=== PATIENT | male | born 1980 | race Caucasian/White ===

== ENCOUNTER 2018-05-26 13:39 | Inpatient (IN) ==
[2018-05-26] MEDS ORDERED: Sod Chloride 0.9% Inj 1,000 ML IV.SIG ONE (15:21)
[2018-05-26] MEDS ORDERED: Acetaminophen 325 MG Tablet PO ONE (15:21)
[2018-05-26 16:23] LABS: Baso # (Auto) 0.1 th/mm3 (0.0-0.2); Baso % (Auto) 0.7 % (0.0-2.0); Eos # (Auto) 0.1 th/mm3 (0.0-0.4); Eos % (Auto) 1.2 % (0.0-4.0); Hematocrit 42.5 % (39.0-51.0); Hemoglobin 14.9 gm/dL (13.0-17.0); Lymph # (Auto) 1.1 th/mm3 (1.0-4.8); Lymph % (Auto) 10.1 % (9.0-44.0); Mean Corpuscular HGB Conc 35.1 % (32.0-36.0); Mean Corpuscular Hemoglobin 29.8 pg (27.0-34.0); Mean Corpuscular Volume 84.8 fL (80.0-100.0); Mean Platelet Volume 8.1 fL (7.0-11.0); Mono # (Auto) 0.6 th/mm3 (0.0-0.9); Mono % (Auto) 5.2 % (0.0-8.0); Neut # (Auto) 8.8 th/mm3 (1.8-7.7); Neut % (Auto) 82.8 % (16.0-70.0); Platelet Count 349 th/mm3 (150-450); Red Blood Count 5.01 mil/mm3 (4.50-5.90); Red Cell Distribution Width 12.5 % (11.6-17.2); White Blood Count 10.7 th/mm3 (4.0-11.0)
[2018-05-26 16:32] LABS: Activated Partial Thrombo Time 26.1 sec (23.4-31.7); Prothrombin Time 10.1 sec (9.8-11.6)
[2018-05-26 16:47] LABS: Alanine Aminotransferase 70 U/L (12-78); Albumin 3.9 g/dL (3.4-5.0); Anion Gap 7 meq/L (5-15); Aspartate Aminotransferase 22 U/L (15-37); Blood Urea Nitrogen 13 mg/dL (7-18); Calcium 8.9 mg/dL (8.5-10.1); Carbon Dioxide 28.5 meq/L (21.0-32.0); Chloride 102 meq/L (98-107); Glomerular Filtration Rate Greater Than 89 mL/min (>89); Glucose,Random 112 mg/dL (74-106); Sodium 137 meq/L (136-145)
[2018-05-26 16:49] LABS: Alkaline Phosphatase 61 U/L (45-117); Total Protein 7.4 g/dL (6.4-8.2)
[2018-05-26] MEDS ORDERED: Butalbital/APAP/Caff 50/325/40 MG Tablet PO ONE (17:43)
[2018-05-26] MEDS ORDERED: Lidocaine 1% Inj 50 ML Vial INFILTRATN ONE (17:57)
--- NOTE | 2018-05-26 18:50 | ED ---
HPI General Chief complaint: Headache Stated complaint: Head Complaint Time Seen by Provider: 05/26/18 14:55 Source: patient Mode of arrival: ambulatory Limitations: no limitations History of Present Illness HPI narrative: Patient is a 38 year old male who comes in complaining of headache. He says he has had a headache for 7-8 days now. He says the pain was behind his eyes and now wraps around his head. He denies nausea or vomiting. He has tried Tylenol, Ibuprofen without relief. His doctor gave him a prescription for Tramadol, but he says this has not helped either. He says he has occasional fevers, the last one was a few days ago. He says his doctor did a CT scan and told him to come to the ED to rule out meningitis. He does report comes pain to the back of his neck. Severity is moderate. Related Data Home Medications Medication Instructions Recorded Confirmed atorvastatin 10 mg PO DAILY 05/26/18 05/26/18 lisinopril 20 mg PO DAILY 05/26/18 05/26/18 Allergies Allergy/AdvReac Type Severity Reaction Status Date / Time No Known Allergies Allergy Verified 05/26/18 13:54 Review of Systems ROS: all other systems reviewed are negative Constitutional Reports fever(s) ENT Reports dizziness and Reports headache(s) Cardiovascular Denies chest pain and Denies dyspnea Respiratory Denies cough Gastrointestinal Denies nausea and Denies vomiting Musculoskeletal Denies myalgias and Denies arthralgias Integumentary/Breasts Denies sores and Denies wounds Neurologic Reports headache(s) [facility] Medical History Medical History HTN (hypertension) (Acute) High cholesterol (Acute) Surgical History Surgical History History of shoulder surgery (Acute) Social History Social History Substance History: No History of Abuse Second Hand Smoke Exposure: No Smoking Status: Never smoker How Often Do You Have a Drink Containing Alcohol: 2 to 4 times a month Recent Travel in [facility] within the Last 8 Weeks: No Recent Out of Country Travel within the Last 8 Weeks: No Immunization History Tetanus Immunization: <5 Years Exam Narrative Exam Narrative: GENERAL: Awake and alert, in no acute distress. SKIN: Focused skin assessment warm/dry. HEAD: Atraumatic. Normocephalic. EYES: Pupils equal and round. No scleral icterus. No injection or drainage. ENT: No nasal bleeding or discharge. Mucous membranes pink and moist. NECK: Trachea midline. No JVD. CARDIOVASCULAR: Regular rate and rhythm. No murmur appreciated. RESPIRATORY: No accessory muscle use. Clear to auscultation. Breath sounds equal bilaterally. GASTROINTESTINAL: Abdomen soft, non-tender, nondistended. MUSCULOSKELETAL: No obvious deformities. No clubbing. No cyanosis. No edema. NEUROLOGICAL: Awake and alert. No obvious cranial nerve deficits. Motor grossly within normal limits. Normal speech. PSYCHIATRIC: Appropriate mood and affect; insight and judgment normal. Procedures Lumbar Puncture Time Out Performed: No Patient Position: upright Skin Prep: Povidone-Iodine 1% Local anesthetic used: Lidocaine 1% Amount of anesthesia used (mL): 1 Spinal Needle Gauge: 20G Interspace Used: L3-L4 Fluid Initially Obtained: clear Complications: none and Need to have other Practitioner Attempt Additional Comments: Patient already prepped and draped in the left lateral position for Dr. Carmona, she has asked me Dr. Randolph to try lumbar puncture she has been unsuccessful x2 attempts. Patient was placed in the upright position, reprepped and draped, lidocaine anesthetized, with minimal adjustment patient had healed of blood-tinged but cleared immediately cerebrospinal fluid. 4 cc of spinal fluid was obtained in 1 mL aliquots, spinal needle was removed, patient has not suffered any immediate adverse events. Course Initial Documented Vital Signs Temperature 97.2 F L 05/26/18 13:51 Pulse Rate 97 H 05/26/18 13:51 Respiratory Rate 20 05/26/18 13:51 Blood Pressure 139/92 H 05/26/18 13:51 Pulse Oximetry 98 05/26/18 13:51 Last Documented Vital Signs Temperature 98.1 F 05/29/18 11:48 Pulse Rate 85 05/29/18 11:48 Respiratory Rate 18 05/29/18 11:48 Blood Pressure 146/92 H 05/29/18 11:48 Pulse Oximetry 100 05/29/18 11:48 Sign Out Sign Out Data: Patient Sign Out occurred on 05/26/18 at 19:41. Patient's care was discussed, and care was transferred from Jenifer Carmona MD to Alek Torres. Sign Out Comment: Patient is a 38 year old male with a headache for 8 days. Sent to rule out meningitis. Follow up CSF results and disposition the patient. Last updated by Jenifer Carmona MD at 05/26/18 19:21 Post-Handoff Eval: 38-year-old male came to the emergency sent by his primary care with history of headache for past few days. His primary care had treated him with antibiotic for sinus infection. However when the headache and photophobia persisted he was recommended to come to the emergency room to get a spinal tap to rule out meningitis. Patient was seen by the previous ER physician. Please refer to her history and physical for further details. Patient did have a lumbar puncture done in the signout was to follow-up on the CSF fluid. The white blood cell count is significantly elevated in the CSF which makes the diagnosis of meningitis highly likely. I have given him a dose meningitic of Rocephin. Head CT has been ordered and I have admitted him to the hospitalist. Patient is aware of this plan and is okay with it. Medical Decision Making MDM Narrative Medical decision making narrative: Patient is a 38 year old male who comes in complaining of headache. Exam shows no evidence of meningeal signs. IV established, labs sent. Labs show no acute abnormalities. Given Tylenol, Benadryl, Compazine, IVF with some improvement of symptoms. Patient sent to rule out meningitis, so LP performed. Given Fioricet. Head CT performed at [place] [facility] performed 2 days ago shows no acute abnormalities. Medical Screen Exam Complete: Yes Emergency Medical Condition: Yes Differential Diagnosis Differential Diagnosis: tension headache vs viral meningitis vs dehydration vs cluster headache Medical Records Medical records reviewed: Yes I reviewed the patient's medical records. Lab Data Lab results reviewed: Yes I reviewed the patient's lab results. Result diagrams: 05/27/18 05:58 05/27/18 05:58 Lab Results 05/26/18 05/26/18 05/26/18 Range/Units 15:44 15:44 15:44 WBC 10.7 (4.0-11.0) th/mm3 RBC 5.01 (4.50-5.90) mil/mm3 Hgb 14.9 (13.0-17.0) gm/dL Hct 42.5 (39.0-51.0) % MCV 84.8 (80.0-100.0) fL MCH 29.8 (27.0-34.0) pg MCHC 35.1 (32.0-36.0) % RDW 12.5 (11.6-17.2) % Plt Count 349 (150-450) th/mm3 MPV 8.1 (7.0-11.0) fL Neut % (Auto) 82.8 H (16.0-70.0) % Lymph % (Auto) 10.1 (9.0-44.0) % Weston % (Auto) 5.2 (0.0-8.0) % Eos % (Auto) 1.2 (0.0-4.0) % Baso % (Auto) 0.7 (0.0-2.0) % Neut # (Auto) 8.8 H (1.8-7.7) th/mm3 Lymph # (Auto) 1.1 (1.0-4.8) th/mm3 Weston # (Auto) 0.6 (0.0-0.9) th/mm3 Eos # (Auto) 0.1 (0.0-0.4) th/mm3 Baso # (Auto) 0.1 (0.0-0.2) th/mm3 WBC Differential . Differential Comment Auto diff final PT 10.1 (9.8-11.6) sec INR 1.0 Ratio APTT 26.1 (23.4-31.7) sec Sodium 137 (136-145) meq/L Potassium 4.0 (3.5-5.1) meq/L Chloride 102 (98-107) meq/L Carbon Dioxide 28.5 (21.0-32.0) meq/L Anion Gap 7 (5-15) meq/L BUN 13 (7-18) mg/dL Creatinine 0.89 (0.60-1.30) mg/dL Estimated GFR Greater than 89 (>89) mL/min Random Glucose 112 H (74-106) mg/dL Calcium 8.9 (8.5-10.1) mg/dL Total Bilirubin 0.6 (0.2-1.0) mg/dL AST 22 (15-37) U/L ALT 70 (12-78) U/L Alkaline Phosphatase 61 (45-117) U/L Total Protein 7.4 (6.4-8.2) g/dL Albumin 3.9 (3.4-5.0) g/dL CSF Volume (1) mL CSF Supernat Color (1) (Clear) CSF Gross Blood (1) (0) CSF Volume (2) mL CSF Supernat Color (2) (Clear) CSF Gross Blood (2) (0) CSF Volume (3) mL CSF Supernat Color (3) (Clear) CSF Gross Blood (3) (0) CSF Volume (4) mL CSF Supernat Color (4) (Clear) CSF Gross Blood (4) (0) CSF WBC (4) (0-10) /mm3 CSF RBC (4) (None) /mm3 CSF Neutrophils % % CSF Lymphocytes % % CSF Monocytes % % CSF Glucose CSF Total Protein (15.0-45.0) mg/dL CSF Herpes I DNA (PCR) (Negative) CSF Herpes II DNA (PCR) (Negative) 05/26/18 05/26/18 05/26/18 Range/Units 18:45 18:45 18:45 WBC (4.0-11.0) th/mm3 RBC (4.50-5.90) mil/mm3 Hgb (13.0-17.0) gm/dL Hct (39.0-51.0) % MCV (80.0-100.0) fL MCH (27.0-34.0) pg MCHC (32.0-36.0) % RDW (11.6-17.2) % Plt Count (150-450) th/mm3 MPV (7.0-11.0) fL Neut % (Auto) (16.0-70.0) % Lymph % (Auto) (9.0-44.0) % Weston % (Auto) (0.0-8.0) % Eos % (Auto) (0.0-4.0) % Baso % (Auto) (0.0-2.0) % Neut # (Auto) (1.8-7.7) th/mm3 Lymph # (Auto) (1.0-4.8) th/mm3 Weston # (Auto) (0.0-0.9) th/mm3 Eos # (Auto) (0.0-0.4) th/mm3 Baso # (Auto) (0.0-0.2) th/mm3 WBC Differential Differential Comment PT (9.8-11.6) sec INR Ratio APTT (23.4-31.7) sec Sodium (136-145) meq/L Potassium (3.5-5.1) meq/L Chloride (98-107) meq/L Carbon Dioxide (21.0-32.0) meq/L Anion Gap (5-15) meq/L BUN (7-18) mg/dL Creatinine (0.60-1.30) mg/dL Estimated GFR (>89) mL/min Random Glucose (74-106) mg/dL Calcium (8.5-10.1) mg/dL Total Bilirubin (0.2-1.0) mg/dL AST (15-37) U/L ALT (12-78) U/L Alkaline Phosphatase (45-117) U/L Total Protein (6.4-8.2) g/dL Albumin (3.4-5.0) g/dL CSF Volume (1) 0.9 mL CSF Supernat Color (1) Clear (Clear) CSF Gross Blood (1) 0 (0) CSF Volume (2) 0.9 mL CSF Supernat Color (2) Clear (Clear) CSF Gross Blood (2) 0 (0) CSF Volume (3) 0.8 mL CSF Supernat Color (3) Clear (Clear) CSF Gross Blood (3) 0 (0) CSF Volume (4) 0.8 mL CSF Supernat Color (4) Clear (Clear) CSF Gross Blood (4) 0 (0) CSF WBC (4) 84 H (0-10) /mm3 CSF RBC (4) 2 H (None) /mm3 CSF Neutrophils % 1 % CSF Lymphocytes % 95 % CSF Monocytes % 4 % CSF Glucose Cancelled CSF Total Protein (15.0-45.0) mg/dL CSF Herpes I DNA (PCR) Negative (Negative) CSF Herpes II DNA (PCR) Negative (Negative) 05/26/18 05/27/18 05/27/18 Range/Units 18:45 05:58 05:58 WBC 8.7 (4.0-11.0) th/mm3 RBC 4.72 (4.50-5.90) mil/mm3 Hgb 14.2 (13.0-17.0) gm/dL Hct 40.4 (39.0-51.0) % MCV 85.6 (80.0-100.0) fL MCH 30.1 (27.0-34.0) pg MCHC 35.1 (32.0-36.0) % RDW 11.8 (11.6-17.2) % Plt Count 332 (150-450) th/mm3 MPV 7.6 (7.0-11.0) fL Neut % (Auto) 72.4 H (16.0-70.0) % Lymph % (Auto) 17.9 (9.0-44.0) % Weston % (Auto) 8.0 (0.0-8.0) % Eos % (Auto) 1.2 (0.0-4.0) % Baso % (Auto) 0.5 (0.0-2.0) % Neut # (Auto) 6.3 (1.8-7.7) th/mm3 Lymph # (Auto) 1.6 (1.0-4.8) th/mm3 Weston # (Auto) 0.7 (0.0-0.9) th/mm3 Eos # (Auto) 0.1 (0.0-0.4) th/mm3 Baso # (Auto) 0.0 (0.0-0.2) th/mm3 WBC Differential . Differential Comment Auto diff final PT (9.8-11.6) sec INR Ratio APTT (23.4-31.7) sec Sodium 141 (136-145) meq/L Potassium 3.7 (3.5-5.1) meq/L Chloride 106 (98-107) meq/L Carbon Dioxide 27.7 (21.0-32.0) meq/L Anion Gap 7 (5-15) meq/L BUN 7 (7-18) mg/dL Creatinine 0.86 (0.60-1.30) mg/dL Estimated GFR Greater than 89 (>89) mL/min Random Glucose 123 H (74-106) mg/dL Calcium 8.2 L (8.5-10.1) mg/dL Total Bilirubin 0.6 (0.2-1.0) mg/dL AST 16 (15-37) U/L ALT 50 (12-78) U/L Alkaline Phosphatase 53 (45-117) U/L Total Protein 6.7 D (6.4-8.2) g/dL Albumin 3.5 (3.4-5.0) g/dL CSF Volume (1) mL CSF Supernat Color (1) (Clear) CSF Gross Blood (1) (0) CSF Volume (2) mL CSF Supernat Color (2) (Clear) CSF Gross Blood (2) (0) CSF Volume (3) mL CSF Supernat Color (3) (Clear) CSF Gross Blood (3) (0) CSF Volume (4) mL CSF Supernat Color (4) (Clear) CSF Gross Blood (4) (0) CSF WBC (4) (0-10) /mm3 CSF RBC (4) (None) /mm3 CSF Neutrophils % % CSF Lymphocytes % % CSF Monocytes % % CSF Glucose 54 CSF Total Protein 93.4 H (15.0-45.0) mg/dL CSF Herpes I DNA (PCR) (Negative) CSF Herpes II DNA (PCR) (Negative) Imaging Data Radiologist's impression: Head CT 05/26/18 21:54 CONCLUSION: 1. No acute intracranial abnormality. 2. Acute left maxillary sinusitis. . . Discharge Plan Discharge Disposition Patient Disposition: ED Admit(ED Internal Use Only) Discharge Order Discharge Orders: Discharge Order (Routine); Ordered 05/29/18 Ordered By: Doreen Roach ED Use Only Admit Order (Routine); Ordered 05/26/18 Ordered By: Alek Torres Physicians Team ED Provider: Alek Torres Primary Care Provider: Arnol Martinez Attending Provider: Doreen Roach Other Providers: Torrey De ; [facility],Insurance Status ED Status: Left Department Discharge Information Discharge Date/Time: 05/27/18 00:21
[2018-05-26 19:39] LABS: Total Protein,CSF 93.4 mg/dL (15.0-45.0)
[2018-05-26 20:43] LABS: Neutrophils,CSF 1 %; RBC on Tube 4 2 /mm3
[2018-05-26 20:44] LABS: Lymphocytes, CSF 95 %; Monocytes,CSF 4 %
[2018-05-26] MEDS ORDERED: Morphine Inj 4 MG/ML Vial IV.PUSH ONE (21:48)
[2018-05-26] MEDS ORDERED: Sod Chloride 0.9% Inj 1,000 ML IV.SIG SCH (22:00)
[2018-05-26] MEDS ORDERED: Bisacodyl 10 MG Supp RECTAL PRN (22:00)
[2018-05-26] MEDS ORDERED: Vancomycin Consult Pharmacy OTHER PRN ×2 (22:00→22:19)
[2018-05-26] MEDS ORDERED: Acetaminophen 325 MG Tablet PO PRN (22:00)
--- NOTE | 2018-05-26 22:08 | P.HPIM ---
History of Present Illness Primary Care Physician: Arnol Martinez DO History of Present Illness: This is a 38-year-old male with a PMH of HTN and Hyperlipidemia who was referred to the ER by his PCP for evaluation of possible meningitis. Patient reports complaints of severe headache for approx 1wk, pain is circumferential, severe, 10/10, non-radiating, associated w/ photophobia. No nausea or vomiting. Denies neck pain or stiffness. States he had outpatient CT Head, results unknown. On arrival, BP 139/92, HR 97, O2 sat 98% on RA, Afebrile. CBC unremarkable. INR 1.0. Chemistry unremarkable. BS 112. S/p LP in ER, CSF clear, CSF WBC 84, CSF RBC 2, CSF Protein 93, CSF Glucose normal. S/p Rocephin in ER. Diagnosis (1) Intractable headache: (2) Meningitis: (3) HTN (hypertension): Review of Systems PAST FAMILY HISTORY: Reviewed. No h/o DM or CAD Review of Systems: all other systems reviewed are negative PMFSH Medical History Medical History HTN (hypertension) (Acute) High cholesterol (Acute) Surgical History Surgical History History of shoulder surgery (Acute) Social History Social History Substance History: No History of Abuse Smoking Status: Never smoker How Often Do You Have a Drink Containing Alcohol: Monthly or less Recent Travel in [facility] within the Last 8 Weeks: No Recent Out of Country Travel within the Last 8 Weeks: No Immunization History Tetanus Immunization: <5 Years Medications and Allergies Allergies Allergy/AdvReac Type Severity Reaction Status Date / Time No Known Allergies Allergy Verified 05/26/18 13:54 Home Medications Medication Instructions Recorded Confirmed Type atorvastatin 10 mg PO DAILY 05/26/18 05/26/18 History lisinopril 20 mg PO DAILY 05/26/18 05/26/18 History Active Medications: Active Medications Acetaminophen (Tylenol) 650 mg PO Q4H PRN PRN Reason: Temp > 100.4 Al Hydroxide/Mg Hydroxide (Milk Of Magnesia Liq) 30 ml PO Q12H PRN PRN Reason: Mild Constipation Bisacodyl (Dulcolax Supp) 10 mg RECTAL DAILY PRN PRN Reason: SEVERE CONSITIPATION Diphenhydramine HCl (Benadryl Inj) 25 mg IV.PUSH Q6H PRN PRN Reason: HEADACHE Ceftriaxone Sodium 2,000 mg/ (Sodium Chloride) 100 mls @ 200 mls/hr IV.SIG ONCE ONE Stop: 05/26/18 22:09 Sodium Chloride (Ns Inj) 1,000 mls @ 1,000 mls/hr IV.SIG BOLUS ALAINA Stop: 05/26/18 22:59 Acyclovir Sodium 700 mg/ (Sodium Chloride) 114 mls @ 114 mls/hr IV.SIG Q8H ALAINA Ceftriaxone Sodium 2,000 mg/ (Sodium Chloride) 100 mls @ 200 mls/hr IV.SIG Q12H ALAINA Sodium Chloride (Ns Inj) 1,000 mls @ 100 mls/hr IV.CONT .Q10H ALAINA Lactulose (Lactulose Liq) 30 ml PO DAILY PRN PRN Reason: SEVERE CONSITIPATION Morphine Sulfate (Morphine Inj) 2 mg IV.PUSH Q4H PRN PRN Reason: PAIN SCALE 6 TO 10 Ondansetron HCl (Zofran Inj) 4 mg IV.PUSH Q6H PRN PRN Reason: NAUSEA OR VOMITING Pharmacy Profile Note (Vancomycin Consult Pharmacy) 1 each OTHER UNSCH PRN PRN Reason: Pharmacy to dose Prochlorperazine Edisylate (Compazine Inj) 10 mg IV.PUSH Q6H PRN PRN Reason: HEADACHE Senna/Docusate Sodium (Shala-Colace) 1 tab PO BID ALAINA Sennosides (Senokot) 17.2 mg PO Q12H PRN PRN Reason: Moderate Constipation Sodium Chloride (Ns Flush) 2 ml IV.FLUSH PRN PRN PRN Reason: FLUSH AFTER USING IV ACCESS Sodium Chloride (Ns Flush) 2 ml IV.FLUSH BID ALAINA Sodium Chloride (Ns Flush) 2 ml IV.FLUSH PRN PRN PRN Reason: FLUSH AFTER USING IV ACCESS Physical Exam Vital signs: Vital Signs 05/26/18 13:51 05/26/18 14:57 05/26/18 19:22 Temperature 97.2 F L Pulse Rate 97 H 97 H Respiratory Rate 20 16 17 Blood Pressure 139/92 H 136/79 Pulse Oximetry 98 97 05/26/18 20:34 Temperature Pulse Rate 115 H Respiratory Rate 17 Blood Pressure 124/68 Pulse Oximetry 99 Intake & Output 05/26/18 05/26/18 05/27/18 06:59 18:59 06:59 Intake Total 1000 / 1000 Balance 1000 / 1000 Weight 106.594 kg Intake: IV 1000 / 1000 NS Inj 1,000 ML @ Wide Open IV. 1000 / 1000 SIG BOLUS ONE Rx#:[id number] Narrative: PE: GENERAL: Pleasant young white male in no acute distress, seen ambulating in room , mild photophobia. SKIN: Focused skin assessment warm and dry. HEENT: PERRLA, EOMI. No scleral icterus or conjunctival pallor. No lid lag or facial droop. No neck stiffness CARDIOVASCULAR: Regular rate and rhythm. No obvious murmurs to auscultation. No chest tenderness to palpation. RESPIRATORY: No obvious rhonchi or wheezing. Clear to auscultation. Breath sounds equal bilaterally. GASTROINTESTINAL: Abdomen soft, non-tender, nondistended. BS normal. MUSCULOSKELETAL: Extremities without clubbing, cyanosis, or edema. No obvious deformities. NEUROLOGICAL: Awake, alert and oriented x4. No focal neurologic deficits. Moving both upper and lower extremities spontaneously. PSYCHIATRIC: Appropriate mood and affect. Insight and judgment normal. Results Labs CBC & Chem 7: 05/26/18 15:44 05/26/18 15:44 Caprini VTE Risk Assessment Caprini VTE Risk Assessment: No/Low Risk (score <= 1) Caprini Risk Assessment Model: Point Value = 1 Point Value = 2 Point Value = 3 Point Value = 5 Age 41-60 Minor surgery BMI > 25 kg/m2 Swollen legs Varicose veins or History of unexplained or recurrent spontaneous Oral contraceptives or hormone replacement Sepsis (< 1 month) Serious lung disease, including pneumonia (< 1 month) Abnormal pulmonary function Acute myocardial infarction Congestive heart failure (< 1 month) History of inflammatory bowel disease Medical patient at bed rest Age 61-74 Arthroscopic surgery Major open surgery (> 45 min) Laparoscopic surgery (> 45 min) Malignancy Confined to bed (> 72 hours) Immobilizing plaster cast Central venous access Age >= 75 History of VTE Family history of VTE Factor V Leiden Prothrombin [id number] Lupus anticoagulant Anticardiolipin antibodies Elevated serum homocysteine Heparin-induced thrombocytopenia Other congenital or acquired thrombophilia Stroke (< 1 month) Elective arthroplasty Hip, pelvis, or leg fracture Acute spinal cord injury (< 1 month) Prophylaxis Regimen: Total Risk Factor Score Risk Level Prophylaxis Regimen 0-1 Low Early ambulation 2 Moderate Order ONE of the following: *Sequential Compression Device (SCD) *Heparin 5000 units SQ BID 3-4 Higher Order ONE of the following medications: *Heparin 5000 units SQ TID *Enoxaparin/Lovenox 40 mg SQ daily (WT < 150 kg, CrCl > 30 mL/min) *Enoxaparin/Lovenox 30 mg SQ daily (WT < 150 kg, CrCl > 10-29 mL/min) *Enoxaparin/Lovenox 30 mg SQ BID (WT < 150 kg, CrCl > 30 mL/min) AND/OR *Sequential Compression Device (SCD) 5 or more Highest Order ONE of the following medications: *Heparin 5000 units SQ TID (Preferred with Epidurals) *Enoxaparin/Lovenox 40 mg SQ daily (WT < 150 kg, CrCl > 30 mL/min) *Enoxaparin/Lovenox 30 mg SQ daily (WT < 150 kg, CrCl > 10-29 mL/min) *Enoxaparin/Lovenox 30 mg SQ BID (WT < 150 kg, CrCl > 30 mL/min) AND *Sequential Compression Device (SCD) Assessment and Plan (1) Intractable headache: Code(s): R51 - Headache Status: Acute (2) Meningitis: Code(s): G03.9 - Meningitis, unspecified Status: Acute (3) HTN (hypertension): Code(s): I10 - Essential (primary) hypertension Status: Acute Plan A/P: 1. Meningitis: c/o headache/photophobia, LP in ER w/ CSF WBC 84, Protein 93 and normal Glucose, likely viral meningitis, s/p Rocephin in ER, will continue w / empiric treatment of possible bacterial meningitis, add Acyclovir IV, IVF for hydration, consult ID for further eval/recommendations. Check CT Head. 2. Intractable KNIGHT: secondary to above, continue Morphine IV, Benadryl/ Compazine prn. 3. HTN: Resume home medications, monitor BP, antihypertensives for BP >180 4. DVT Prophylaxis: SCD/Teds 5. Social work for DC planning as needed. 6. Case discussed at length with the ER physician, labs/records/imaging reviewed by me.
[2018-05-26] MEDS ORDERED: Vancomycin Inj 2,500 MG in Sodium Chlor 0.9% Inj 500 ML IV.SIG SCH (23:00)
--- NOTE | 2018-05-26 23:39 | CT ---
EXAM DATE: 05/26/2018 11:26 PM EST AGE/SEX: 38 years / Male INDICATIONS: Headache. CLINICAL DATA: This is the patient's initial encounter. Patient reports that signs and symptoms have been present for 1 week and indicates a pain score of 5/10. MEDICAL/SURGICAL HISTORY: None. None. RADIATION DOSE: 56.35 CTDI (mGy) COMPARISON: No prior exams available for comparison. TECHNIQUE: CT of the head without contrast. Using automated exposure control and adjustment of the mA and/or kV according to patient size, radiation dose was kept as low as reasonably achievable to ob tain optimal diagnostic quality images. DICOM format image data is available electronically for revi ew and comparison. FINDINGS: Cerebrum: The ventricles are normal for age. No evidence of midline shift, mass lesion, hemorrhage or acute infarction. No extraaxial fluid collections are seen. Posterior Fossa: The cerebellum and brainstem are intact. The 4th ventricle is midline. The cerebe llopontine angle is unremarkable. Extracranial: The visualized portion of the orbits is intact. Mucosal thickening with air-fluid leve l involving the left maxillary sinus. Remaining paranasal sinuses and mastoid air cells are clear. Skull: The calvaria is intact. No evidence of skull fracture. CONCLUSION: 1. No acute intracranial abnormality. 2. Acute left maxillary sinusitis. . . Electronically signed by: Levon Butterfield MD Board Certified Radiologist 05/26/2018 11:38 PM EST
[2018-05-27] MEDS: Sod Chloride 0.9% Inj 1,000 ML IV.CONT SCH ×4 (01:48→18:06)
[2018-05-27] MEDS: Acyclovir Inj 700 MG in Sodium Chlor 0.9% Inj 100 ML IV.SIG SCH ×4 (02:14→23:50)
[2018-05-27] MEDS: Morphine Sulfate Inj 2 MG/ML Vial IV.PUSH PRN (06:16)
[2018-05-27 06:58] LABS: Baso % (Auto) 0.5 % (0.0-2.0); Eos # (Auto) 0.1 th/mm3 (0.0-0.4); Eos % (Auto) 1.2 % (0.0-4.0); Hematocrit 40.4 % (39.0-51.0); Hemoglobin 14.2 gm/dL (13.0-17.0); Lymph # (Auto) 1.6 th/mm3 (1.0-4.8); Lymph % (Auto) 17.9 % (9.0-44.0); Mean Corpuscular HGB Conc 35.1 % (32.0-36.0); Mean Corpuscular Hemoglobin 30.1 pg (27.0-34.0); Mean Corpuscular Volume 85.6 fL (80.0-100.0); Mean Platelet Volume 7.6 fL (7.0-11.0); Mono # (Auto) 0.7 th/mm3 (0.0-0.9); Neut # (Auto) 6.3 th/mm3 (1.8-7.7); Neut % (Auto) 72.4 % (16.0-70.0); Platelet Count 332 th/mm3 (150-450); Red Blood Count 4.72 mil/mm3 (4.50-5.90); Red Cell Distribution Width 11.8 % (11.6-17.2); White Blood Count 8.7 th/mm3 (4.0-11.0)
[2018-05-27 07:20] LABS: Alanine Aminotransferase 50 U/L (12-78); Albumin 3.5 g/dL (3.4-5.0); Anion Gap 7 meq/L (5-15); Aspartate Aminotransferase 16 U/L (15-37); Blood Urea Nitrogen 7 mg/dL (7-18); Calcium 8.2 mg/dL (8.5-10.1); Carbon Dioxide 27.7 meq/L (21.0-32.0); Chloride 106 meq/L (98-107); Glomerular Filtration Rate Greater Than 89 mL/min (>89); Glucose,Random 123 mg/dL (74-106); Potassium 3.7 meq/L (3.5-5.1); Sodium 141 meq/L (136-145)
[2018-05-27 07:22] LABS: Alkaline Phosphatase 53 U/L (45-117); Total Protein 6.7 g/dL (6.4-8.2)
--- NOTE | 2018-05-27 07:55 | P.PNIM ---
Subjective Interval history: Follow-up for meningitis. The patient reports feeling better today. He states his headache has improved. Previously he had severe 10/10 constant global pressure headache with some sharp pains and photophobia, now much improved rated 3/10. He states he did have neck pain and stiffness off and on over the past week, however this also resolved currently. He states he was having fevers at home as high as 101, but denies any overnight. He states he was recently diagnosed with sinusitis/bronchitis and was previously on steroids and amoxicillin, then also clarithromycin, completed 6-7 days of treatment. He states his cough has now resolved. He denies any recent travel. He denies any sick contacts except for his also had some congestion issues recently. He denies any prior episodes of meningitis. Denies any other medical complaints at this time. Physical Exam Vital signs: Vital Signs 05/26/18 13:51 05/26/18 14:57 05/26/18 19:22 Temperature 97.2 F L Pulse Rate 97 H 97 H Respiratory Rate 20 16 17 Blood Pressure 139/92 H 136/79 Pulse Oximetry 98 97 05/26/18 20:34 05/27/18 04:00 Temperature 98.8 F Pulse Rate 115 H 96 H Respiratory Rate 17 18 Blood Pressure 124/68 138/72 Pulse Oximetry 99 95 Intake & Output 05/26/18 05/27/18 05/27/18 18:59 06:59 18:59 Intake Total 1000 / 1000 1938 Balance 1000 / 1000 1938 Weight 106.594 kg Intake: IV 1000 / 1000 1738 / 1738 Zovirax Inj 700 MG In NS Inj 114 / 114 100 ML @ 114 mls/hr IV.SIG Q8H [facility] Rx#:[id number] NS Inj 1,000 ML @ 1000 mls/hr 1000 / 1000 1000 / 1000 IV.SIG BOLUS [facility] Rx#:[id number] Vancomycin Inj 2,500 MG In NS 525 / 525 Inj 500 ML @ 250 mls/hr IV.SIG DAILY@2300 [facility] Rx#:[id number] Rocephin Inj 2,000 MG In NS Inj 100 / 100 100 ML @ 200 mls/hr IV.SIG ONCE ONE Rx#:[id number] Oral 200 / 200 Other: # Voids 3 Date of Last Bowel Movement 05/26/18 Narrative: GENERAL: Well-nourished, well-developed pleasant middle-age male patient in NAD. SKIN: Warm and dry. No rash. HEENT: Normocephalic. Atraumatic. Pupils equal and round. EOMI. Mucous membranes pink and moist. Oropharynx clear. NECK: Supple. Trachea midline. Nontender. Able to touch chin to chest without difficulty or pain. CARDIOVASCULAR: Regular rate and rhythm. No murmur appreciated. RESPIRATORY: No accessory muscle use. Clear to auscultation. Breath sounds equal bilaterally. GASTROINTESTINAL: Abdomen soft, non-tender, nondistended. Normoactive bowel sounds x4. MUSCULOSKELETAL: No obvious deformities. Extremities without clubbing, cyanosis , or edema. NEUROLOGICAL: Awake and alert. No obvious cranial nerve deficits. Moving all extremities spontaneously. Normal speech. PSYCHIATRIC: Appropriate mood and affect; insight and judgment normal. Results Labs CBC & Chem 7: 05/27/18 05:58 05/27/18 05:58 Labs: Microbiology 05/26/18 18:45 Lumbar Puncture Gram Stain - Final Imaging Imaging: Impressions Head CT 05/26/18 21:54 CONCLUSION: 1. No acute intracranial abnormality. 2. Acute left maxillary sinusitis. . . Assessment and Plan (1) Intractable headache: Code(s): R51 - Headache Status: Acute (2) Meningitis: Code(s): G03.9 - Meningitis, unspecified Status: Acute (3) HTN (hypertension): Code(s): I10 - Essential (primary) hypertension Status: Acute Plan 38-year-old male with history of hypertension hyperlipidemia presents with intractable headache and fevers, sent by PCP for concern for meningitis. Acute meningitis: Patient with headache, photophobia, fevers, neck stiffness times 1 week. Suspect viral meningitis. Afebrile here, however having temps 101 at home. No leukocytosis. -Status post LP in ER 05/26, CSF with WBC 84, protein 93, normal glucose consistent with viral meningitis -Await CSF cultures and blood cultures -Continue empiric treatment with IV Rocephin and IV Vanco for possible bacterial meningitis -Continue empiric IV acyclovir, await HSV results -Supportive treatment with IV fluid hydration, Tylenol as needed, pain control as needed -Consult infectious disease, appreciate recommendations Intractable headache: Suspect secondary to above -Continue IV morphine, Benadryl, Compazine as needed -Headache improving Hypertension/hyperlipidemia: Chronic, BP well-controlled -Continue patient's lisinopril and statin -Monitor BP, adjust antihypertensives as needed DVT prophylaxis: Teds/SCDs; avoid chemical prophylaxis with recent LP Attending Attestation patient was seen and examined today. in no acute distress and says that his headache is better. afebrile. on exam; with no neck stiffness. awaiting the blood and CSF cultures. continue with empiric antibiotic therapy. ID consulted. Progress Note: Quality VTE Deep Vein Thrombosis/Pulmonary Embolism Present on Admission: No
[2018-05-27] MEDS: Senna/Docusate Sodium 8.6/50 MG Tablet PO SCH ×2 (08:35→22:16)
--- NOTE | 2018-05-27 08:49 | P.PNIM ---
Subjective Interval history: Follow up of 38 y/o male with possible bacterial vs viral meningitis. Patient reports his headache has improved to a 4/10 but gets worse at times up to a 10/ 10. The headache wraps around his head and does not radiate. Still complaining of photophobia but this has also improved. He reports he vomited before his arrival to the ED yesterday, and has been feeling vaguely nauseas for the past few days. Denies abdominal pain. He states his neck may feel a little stiff but reports no pain. Denies fever or chills. Denies chest pain and SOB. He states that both him and his were sick for the past 1-2 weeks, ruled as a sinusitis and he was given PO Amoxicillin from an urgent care with no relief. He was then given clarithromycin from his PCP on Wednesday 05/24, with no relief. He was also having a headache at this time but not as severe. Has 2 young kids, aged 1 and 3 whom he's worried about becoming sick, but are currently well. Denies recent travel. Has no other medical complaints at this time. Physical Exam Vital signs: Vital Signs 05/26/18 13:51 05/26/18 14:57 05/26/18 19:22 Temperature 97.2 F L Pulse Rate 97 H 97 H Respiratory Rate 20 16 17 Blood Pressure 139/92 H 136/79 Pulse Oximetry 98 97 05/26/18 20:34 05/27/18 04:00 05/27/18 08:00 Temperature 98.8 F 97.2 F L Pulse Rate 115 H 96 H 100 H Respiratory Rate 17 18 14 Blood Pressure 124/68 138/72 128/70 Pulse Oximetry 99 95 93 L Intake & Output 05/26/18 05/27/18 05/27/18 18:59 06:59 18:59 Intake Total 1000 / 1000 1938 Balance 1000 / 1000 1938 Weight 106.594 kg Intake: IV 1000 / 1000 1738 Zovirax Inj 700 MG In NS Inj 114 / 114 100 ML @ 114 mls/hr IV.SIG Q8H [facility] Rx#:[id number] NS Inj 1,000 ML @ 1000 mls/hr 1000 / 1000 1000 / 1000 IV.SIG BOLUS [facility] Rx#:[id number] Vancomycin Inj 2,500 MG In NS 525 / 525 Inj 500 ML @ 250 mls/hr IV.SIG DAILY@2300 [facility] Rx#:[id number] Rocephin Inj 2,000 MG In NS Inj 100 / 100 100 ML @ 200 mls/hr IV.SIG ONCE ONE Rx#:[id number] Oral 200 / 200 Other: # Voids 3 Date of Last Bowel Movement 05/26/18 Narrative: GENERAL: Pleasant young white male in no acute distress, mild photophobia. SKIN: Focused skin assessment warm and dry. HEENT:. No neck stiffness or pain. CARDIOVASCULAR: Regular rate and rhythm. No murmurs appreciated. No chest tenderness to palpation. RESPIRATORY: Clear to auscultation. Breath sounds equal bilaterally. No rhonchi or wheezing appreciated. GASTROINTESTINAL: Abdomen soft, non-tender, nondistended. Bowel sounds normal x4. MUSCULOSKELETAL: No obvious deformities. NEUROLOGICAL: Awake, alert and oriented x4. PSYCHIATRIC: Appropriate mood and affect. Insight and judgment normal. Results - Labs CBC & Chem 7: 05/27/18 05:58 05/27/18 05:58 Laboratory Results - last 24 hr 05/26/18 05/26/18 05/26/18 15:44 15:44 15:44 WBC 10.7 RBC 5.01 Hgb 14.9 Hct 42.5 MCV 84.8 MCH 29.8 MCHC 35.1 RDW 12.5 Plt Count 349 MPV 8.1 Neut % (Auto) 82.8 H Lymph % (Auto) 10.1 Andrews % (Auto) 5.2 Eos % (Auto) 1.2 Baso % (Auto) 0.7 Neut # (Auto) 8.8 H Lymph # (Auto) 1.1 Andrews # (Auto) 0.6 Eos # (Auto) 0.1 Baso # (Auto) 0.1 WBC Differential . Differential Comment Auto diff final PT 10.1 INR 1.0 APTT 26.1 Sodium 137 Potassium 4.0 Chloride 102 Carbon Dioxide 28.5 Anion Gap 7 BUN 13 Creatinine 0.89 Estimated GFR Greater than 89 Random Glucose 112 H Calcium 8.9 Total Bilirubin 0.6 AST 22 ALT 70 Alkaline Phosphatase 61 Total Protein 7.4 Albumin 3.9 CSF Volume (1) CSF Supernat Color (1) CSF Gross Blood (1) CSF Volume (2) CSF Supernat Color (2) CSF Gross Blood (2) CSF Volume (3) CSF Supernat Color (3) CSF Gross Blood (3) CSF Volume (4) CSF Supernat Color (4) CSF Gross Blood (4) CSF WBC (4) CSF RBC (4) CSF Neutrophils % CSF Lymphocytes % CSF Monocytes % CSF Glucose CSF Total Protein 05/26/18 05/26/18 05/26/18 18:45 18:45 18:45 WBC RBC Hgb Hct MCV MCH MCHC RDW Plt Count MPV Neut % (Auto) Lymph % (Auto) Andrews % (Auto) Eos % (Auto) Baso % (Auto) Neut # (Auto) Lymph # (Auto) Andrews # (Auto) Eos # (Auto) Baso # (Auto) WBC Differential Differential Comment PT INR APTT Sodium Potassium Chloride Carbon Dioxide Anion Gap BUN Creatinine Estimated GFR Random Glucose Calcium Total Bilirubin AST ALT Alkaline Phosphatase Total Protein Albumin CSF Volume (1) 0.9 CSF Supernat Color (1) Clear CSF Gross Blood (1) 0 CSF Volume (2) 0.9 CSF Supernat Color (2) Clear CSF Gross Blood (2) 0 CSF Volume (3) 0.8 CSF Supernat Color (3) Clear CSF Gross Blood (3) 0 CSF Volume (4) 0.8 CSF Supernat Color (4) Clear CSF Gross Blood (4) 0 CSF WBC (4) 84 H CSF RBC (4) 2 H CSF Neutrophils % 1 CSF Lymphocytes % 95 CSF Monocytes % 4 CSF Glucose Cancelled 54 CSF Total Protein 93.4 H 05/27/18 05/27/18 05:58 05:58 WBC 8.7 RBC 4.72 Hgb 14.2 Hct 40.4 MCV 85.6 MCH 30.1 MCHC 35.1 RDW 11.8 Plt Count 332 MPV 7.6 Neut % (Auto) 72.4 H Lymph % (Auto) 17.9 Andrews % (Auto) 8.0 Eos % (Auto) 1.2 Baso % (Auto) 0.5 Neut # (Auto) 6.3 Lymph # (Auto) 1.6 Andrews # (Auto) 0.7 Eos # (Auto) 0.1 Baso # (Auto) 0.0 WBC Differential . Differential Comment Auto diff final PT INR APTT Sodium 141 Potassium 3.7 Chloride 106 Carbon Dioxide 27.7 Anion Gap 7 BUN 7 Creatinine 0.86 Estimated GFR Greater than 89 Random Glucose 123 H Calcium 8.2 L Total Bilirubin 0.6 AST 16 ALT 50 Alkaline Phosphatase 53 Total Protein 6.7 D Albumin 3.5 CSF Volume (1) CSF Supernat Color (1) CSF Gross Blood (1) CSF Volume (2) CSF Supernat Color (2) CSF Gross Blood (2) CSF Volume (3) CSF Supernat Color (3) CSF Gross Blood (3) CSF Volume (4) CSF Supernat Color (4) CSF Gross Blood (4) CSF WBC (4) CSF RBC (4) CSF Neutrophils % CSF Lymphocytes % CSF Monocytes % CSF Glucose CSF Total Protein Microbiology 05/26/18 18:45 Lumbar Puncture Gram Stain - Final 05/26/18 18:45 Lumbar Puncture CSF Culture - Preliminary No growth in 24 hours - Imaging Impressions Head CT 05/26/18 21:54 CONCLUSION: 1. No acute intracranial abnormality. 2. Acute left maxillary sinusitis. . . Assessment and Plan - Plan Meningitis, Acute: Headache with photophobia. Lumbar puncture in ER shows CSF with WBC 84, Protein 93 and normal Glucose, likely viral meningitis -Continue abx with IV Rocephin, IV vanco for empiric coverage of possible bacterial meningitis -Continue IV Acyclovir -Continue IVF for hydration -Consult infectious disease, appreciate recommendations -Blood cultures pending - Intractable KNIGHT, Acute: Secondary to meningitis -Continue morphine IV -Continue benadryl and compazine prn -Patient reports some relief in the headache Hypertension, Chronic: -Controlled, BP: 128/70 -Resume patients home lisinopril -Monitor, adjust patients anti-hypertensive meds as needed Hyperlipidemia, Chronic: -Resume patients home atorvastatin DVT Prophylaxis: SCDs/TEDS
[2018-05-27] MEDS: Lisinopril 20 MG Tablet PO SCH (09:29)
--- NOTE | 2018-05-27 17:50 | MB ---
cc: Torrey De MD DATE: 05/27/2018 REQUESTING PHYSICIAN: Liliya De Leon MD REASON: Rule out meningitis. HISTORY OF PRESENT ILLNESS: This is a 38-year-old white male who presented to the emergency department with headache. The patient reports having onset of headache about a week ago. He saw his primary care physician and he was given a course of amoxicillin because he was felt to probably have sinusitis. He took the antibiotic for 6 days and did not improve. He continued to have the headaches. He was evaluated again and was put on azithromycin, which he took for a few days. Because the headache was not improving, he presented to the emergency department for evaluation. He reports that the headache is all over the head and it started off behind his eyes when it began. He took ibuprofen and Tylenol without relief. He was also given tramadol, which did not lead to improvement. He was referred to the emergency department for evaluation. CT scan was performed 2 days before presenting and did not show any abnormality. His temperature in the emergency department was normal and his white count was normal as well. He states that he had a fever on one occasion. The patient notes that his is now beginning to experience mild headache with pain behind her eyes. They have 2 small children, one of whom is in daycare. He also knows that he had an episode of nausea and vomiting. He notes that he has had flashes of light before his eyes. No numbness or tingling of his arms. He denies any cough or sputum production. No history of fever blisters or herpes outbreak. The patient has been alert throughout this illness. Lumbar puncture was performed yesterday and showed 84 white cells, 95% lymphocytes, 1% neutrophils, protein of 93 and glucose of 54. The culture has no growth in 24 hours. Blood culture has no growth. CT of the head revealed acute left maxillary sinusitis. The patient denies recent travel outside of the or [place]. No exposures to exotic pets. PAST MEDICAL HISTORY: Hypertension, hypercholesteremia, history of shoulder surgery. ALLERGIES: NO KNOWN DRUG ALLERGIES. MEDICATIONS: 1. Ceftriaxone. 2. Acyclovir. 3. Lipitor. 4. Prinivil. 5. Benadryl. 5. Morphine sulfate. 7. Compazine. 8. Shala-Colace. 9. Vancomycin. SOCIAL HISTORY: The patient is . No tobacco use. Alcohol approximately 2-4 times a month. No illicit drugs. FAMILY HISTORY: Noncontributory. REVIEW OF SYSTEMS: All systems have been reviewed with pertinent features mentioned in the history of present illness. PHYSICAL EXAMINATION: GENERAL: Well-developed male in no acute distress. He is awake and alert and oriented. VITAL SIGNS: Temperature 96.6, BP 127/89, respirations 16, heart rate 87. HEENT: The head is atraumatic. Extraocular movements grossly intact. Pupils reactive to light. No icterus. No nystagmus. Nasal septum midline. Oropharynx moist mucosa without lesions. NECK: Supple. No adenopathy. LUNGS: Clear breath sounds bilaterally. HEART: Regular S1, S2, without murmurs, rubs or gallops. ABDOMEN: Bowel sounds present. Soft, nontender. No hepatosplenomegaly. RECTAL: Not performed. EXTREMITIES: No clubbing, cyanosis or edema. SKIN: No rash. NEUROLOGIC: No gross focal finding. PSYCHIATRIC: Calm and cooperative. LABORATORY DATA: WBC 8.7, platelets 332, hemoglobin 14.2, neutrophils 72%, lymphocytes 17, monocytes 8%. Creatinine 0.86, estimated GFR greater than 89. LFTs normal. IMPRESSION: 1. Persistent headache and abnormal cerebrospinal fluid indicating lymphocyte predominance. 2. Acute sinusitis noted on CT scan of the head. However, the patient receives oral antibiotics and his problems with headache did not go away. The cerebrospinal fluid is more indicative of a viral process or possibly aseptic meningitis. No features suggesting acute bacterial meningitis on the cerebrospinal fluid studies. RECOMMENDATIONS: 1. Continue ceftriaxone. 2. Discontinue vancomycin. 3. Continue acyclovir. 4. Monitor PCR, HSV and the CSF. 5. Obtain cryptococcal antigen on the CSF. 6. Monitor clinical status. 7. Obtain AFB smear on the CSF as well. The patient's progress will be monitored and further recommendations will be made upon followup. He seems to be improving and if he continues to improve over the next couple of days and the headache resolves, the IV antibiotic can be discontinued depending on the HSV and CSF studies. Thank you for this consultation. Torrey De MD FFD/ct , 03:46 PM , 04:00 PM
[2018-05-27] MEDS ORDERED: Vancomycin Inj 1,500 MG in Sodium Chlor 0.9% Inj 500 ML IV.SIG SCH (18:00)
[2018-05-28] MEDS: Sod Chloride 0.9% Inj 1,000 ML IV.CONT SCH ×2 (03:41→15:35)
[2018-05-28] MEDS: Acyclovir Inj 700 MG in Sodium Chlor 0.9% Inj 100 ML IV.SIG SCH ×3 (05:54→21:46)
[2018-05-28] MEDS: Senna/Docusate Sodium 8.6/50 MG Tablet PO SCH ×2 (09:31→21:09)
[2018-05-28] MEDS: Lisinopril 20 MG Tablet PO SCH (09:31)
[2018-05-28] MEDS ORDERED: Pharmacy Ordered Lab Info OTHER ONE (09:45)
--- NOTE | 2018-05-28 13:20 | P.PNIM ---
Subjective Interval history: Patient in no distress, eating lunch. No complaints. headache and photophobia have improved. Physical Exam Vital signs: Vital Signs 05/27/18 16:00 05/27/18 20:00 05/28/18 00:00 Temperature 98.4 F 99.1 F 98.8 F Pulse Rate 83 92 H 89 Respiratory Rate 19 17 17 Blood Pressure 141/90 H 133/89 141/86 H Pulse Oximetry 98 92 L 96 05/28/18 08:00 05/28/18 11:59 Temperature 98.4 F 98.4 F Pulse Rate 100 H 82 Respiratory Rate 18 18 Blood Pressure 133/85 139/89 Pulse Oximetry 95 98 Intake & Output 05/27/18 05/28/18 05/28/18 18:59 06:59 18:59 Intake Total 1528 / 1528 1789 / 1789 100 / 100 Output Total 1000 / 1000 Balance 528 / 528 1789 / 1789 100 / 100 Weight 104.7 kg 104.5 kg Intake: IV 728 / 728 1214 / 1214 100 / 100 NS Inj 1,000 ML @ 100 mls/hr IV 400 / 400 1000 / 1000 .CONT .Q10H [facility] Rx#:[id number] Zovirax Inj 700 MG In NS Inj 228 / 228 114 / 114 100 ML @ 114 mls/hr IV.SIG Q8H [facility] Rx#:[id number] Rocephin Inj 2,000 MG In NS Inj 100 / 100 100 / 100 100 / 100 100 ML @ 200 mls/hr IV.SIG Q12H [facility] Rx#:[id number] Oral 800 / 800 575 / 575 Output: Urine 1000 / 1000 Other: # Voids 0 3 # Bowel Movements 0 0 Narrative: Patient is sitting down in a chair with his mother at his side Awake and alert and oriented x3 S1S2 CTA b/l Moves all 4 exts, no weakness, sensation intact, no photophobia, no neck pain. No other neurological defiictis. Results Labs CBC & Chem 7: 05/27/18 05:58 05/27/18 05:58 Labs: Microbiology 05/26/18 22:00 Blood - Peripheral Aerobic Blood Culture - Preliminary No growth in 2 days 05/26/18 22:00 Blood - Peripheral Anaerobic Blood Culture - Preliminary No growth in 2 days 05/26/18 21:50 Blood - Peripheral Aerobic Blood Culture - Preliminary No growth in 2 days 05/26/18 21:50 Blood - Peripheral Anaerobic Blood Culture - Preliminary No growth in 2 days 05/26/18 18:45 Lumbar Puncture Gram Stain - Final 05/26/18 18:45 Lumbar Puncture CSF Culture - Preliminary No growth in 48 hours Assessment and Plan (1) Intractable headache: Code(s): R51 - Headache Status: Acute (2) Meningitis: Code(s): G03.9 - Meningitis, unspecified Status: Acute (3) HTN (hypertension): Code(s): I10 - Essential (primary) hypertension Status: Acute Plan This patient is a 38 y/o male with a hx of HTN, DLD. He was referred to the ER because of a headache x 1 wk with photophobia. There was a concern for possible meningitis. 1. Viral meningitis CT head done, no acute findings. LP done which shows elevated wbc, predominantly lymphocytes, elevated protein Cxs are pending, crypto ag, HSV pending. Will follow up all cxs. ID following Continue Rocephin, continue acyclovir. Will follow up all studies. If viral etiology is confirmed will d/c antibiotics as per ID recs. 2. HTN. BP under control, continue Lisinopril. Patient is ambulatory, no need for pharmacotherapy for dvt prophylaxis. Encouraged ambulation. Progress Note: Quality VTE Deep Vein Thrombosis/Pulmonary Embolism Present on Admission: No
[2018-05-29] MEDS: Sod Chloride 0.9% Inj 1,000 ML IV.CONT SCH ×2 (00:48→11:35)
[2018-05-29] MEDS: Morphine Sulfate Inj 2 MG/ML Vial IV.PUSH PRN (04:13)
[2018-05-29] MEDS: Acyclovir Inj 700 MG in Sodium Chlor 0.9% Inj 100 ML IV.SIG SCH (05:06)
[2018-05-29 08:59] VITALS: RESP 18
--- NOTE | 2018-05-29 09:23 | P.PNIM ---
Subjective Interval history: No complaints this morning. No headache, no photophobia. Patient wants to go home. Physical Exam Vital signs: Vital Signs 05/28/18 11:59 05/28/18 15:59 05/28/18 20:00 Temperature 98.4 F 98.8 F 99.0 F Pulse Rate 82 98 H 81 Respiratory Rate 18 20 17 Blood Pressure 139/89 136/96 H 138/92 H Pulse Oximetry 98 97 93 L 05/29/18 00:00 05/29/18 08:42 Temperature 98.3 F 98.1 F Pulse Rate 98 H 79 Respiratory Rate 17 18 Blood Pressure 128/79 136/89 Pulse Oximetry 96 97 Intake & Output 05/28/18 05/29/18 05/29/18 18:59 06:59 18:59 Intake Total 1214 / 1214 2002 Balance 1214 / 1214 2002 Weight 104.5 kg 104.4 kg Intake: IV 1214 / 1214 1328 / 1328 NS Inj 1,000 ML @ 100 mls/hr IV 1000 / 1000 1000 / 1000 .CONT .Q10H [facility] Rx#:[id number] Zovirax Inj 700 MG In NS Inj 114 / 114 228 / 228 100 ML @ 114 mls/hr IV.SIG Q8H [facility] Rx#:[id number] Rocephin Inj 2,000 MG In NS Inj 100 / 100 100 / 100 100 ML @ 200 mls/hr IV.SIG Q12H [facility] Rx#:[id number] Oral 675 / 675 Other: # Voids 10 5 # Bowel Movements 0 1 Narrative: Patient is sitting down in a chair Awake and alert and oriented x3 S1S2 CTA b/l Moves all 4 exts, no weakness, sensation intact, no photophobia, no neck pain. No other neurological defiictis. Results Labs CBC & Chem 7: 05/27/18 05:58 05/27/18 05:58 Labs: Microbiology 05/26/18 22:00 Blood - Peripheral Aerobic Blood Culture - Preliminary No growth in 2 days 05/26/18 22:00 Blood - Peripheral Anaerobic Blood Culture - Preliminary No growth in 2 days 05/26/18 21:50 Blood - Peripheral Aerobic Blood Culture - Preliminary No growth in 2 days 05/26/18 21:50 Blood - Peripheral Anaerobic Blood Culture - Preliminary No growth in 2 days 05/26/18 18:45 Lumbar Puncture Gram Stain - Final 05/26/18 18:45 Lumbar Puncture CSF Culture - Preliminary No growth in 48 hours Assessment and Plan (1) Intractable headache: Code(s): R51 - Headache Status: Acute (2) Meningitis: Code(s): G03.9 - Meningitis, unspecified Status: Acute (3) HTN (hypertension): Code(s): I10 - Essential (primary) hypertension Status: Acute Plan This patient is a 38 y/o male with a hx of HTN, DLD. He was referred to the ER because of a headache x 1 wk with photophobia. There was a concern for possible meningitis. 05/29/18 Vitals assessed. Afebrile. Patient was evaluated. He is feeling better today. Cxs negative. Crypto, HSV are still pending. On IV antibiotics and antivirals as per ID recs. Continue IVF as pt is on Acyclovir. Will follow up with ID today regarding discharge planning. We are awaiting HSV/Crypto results. 1. Viral meningitis CT head done, no acute findings. LP done which shows elevated wbc, predominantly lymphocytes, elevated protein Cxs are pending, crypto ag, HSV pending. Will follow up all cxs. ID following Continue Rocephin, continue acyclovir. Will follow up all studies. If viral etiology is confirmed will d/c antibiotics as per ID recs. 2. HTN. BP under control, continue Lisinopril. Patient is ambulatory, no need for pharmacotherapy for dvt prophylaxis. Encouraged ambulation. Progress Note: Quality VTE Deep Vein Thrombosis/Pulmonary Embolism Present on Admission: No
[2018-05-29] MEDS: Senna/Docusate Sodium 8.6/50 MG Tablet PO SCH (09:56)
[2018-05-29] MEDS: Lisinopril 20 MG Tablet PO SCH (09:56)
--- NOTE | 2018-05-29 11:31 | P.PNID ---
Subjective Remarks: Patient states that he feels great. Has very slight headache. Reports that he has been ambulating in the room without difficulties. Denies chills. Denies photophobia or visual changes. Denies nausea vomiting. Eating well. Afebrile. Sputum AFB was not performed because there was inadequate quantity of CSF. HSV PCR pending. CSF cultures as no growth. 38-year-old white male who presented to the emergency department with headache. The patient reports having onset of headache about a week ago. He saw his primary care physician and he was given a course of amoxicillin because he was felt to probably have sinusitis. He took the antibiotic for 6 days and did not improve. He continued to have the headaches. He was evaluated again and was put on azithromycin, which he took for a few days. Because the headache was not improving, he presented to the emergency department for evaluation. He reports that the headache is all over the head and it started off behind his eyes when it began. He took ibuprofen and Tylenol without relief. He was also given tramadol, which did not lead to improvement. He was referred to the emergency department for evaluation. CT scan was performed 2 days before presenting and did not show any abnormality. Past Medical History: PAST MEDICAL HISTORY: Hypertension, hypercholesteremia, history of shoulder surgery. Allergies/Adverse Reactions: Allergies No Known Allergies Allergy (Verified 05/26/18 13:54) Objective Vital Signs 05/28/18 11:59 05/28/18 15:59 05/28/18 20:00 Temperature 98.4 F 98.8 F 99.0 F Pulse Rate 82 98 H 81 Respiratory Rate 18 20 17 Blood Pressure 139/89 136/96 H 138/92 H Pulse Oximetry 98 97 93 L 05/29/18 00:00 05/29/18 08:42 Temperature 98.3 F 98.1 F Pulse Rate 98 H 79 Respiratory Rate 17 18 Blood Pressure 128/79 136/89 Pulse Oximetry 96 97 Intake & Output 05/28/18 05/29/18 05/29/18 18:59 06:59 18:59 Intake Total 1214 / 1214 2002 100 / 100 Balance 1214 1214 2002 100 / 100 Weight 104.5 kg 104.4 kg Intake: IV 1214 / 1214 1328 / 1328 100 / 100 NS Inj 1,000 ML @ 100 mls/hr IV 1000 / 1000 1000 / 1000 .CONT .Q10H [facility] Rx#:[id number] Zovirax Inj 700 MG In NS Inj 114 / 114 228 / 228 100 ML @ 114 mls/hr IV.SIG Q8H [facility] Rx#:[id number] Rocephin Inj 2,000 MG In NS Inj 100 / 100 100 / 100 100 / 100 100 ML @ 200 mls/hr IV.SIG Q12H [facility] Rx#:[id number] Oral 675 / 675 Other: # Voids 10 5 Date of Last Bowel Movement 05/28/18 # Bowel Movements 0 1 05/26/18 22:00 Blood - Peripheral Aerobic Blood Culture - Preliminary No growth in 3 days 05/26/18 22:00 Blood - Peripheral Anaerobic Blood Culture - Preliminary No growth in 3 days 05/26/18 21:50 Blood - Peripheral Aerobic Blood Culture - Preliminary No growth in 3 days 05/26/18 21:50 Blood - Peripheral Anaerobic Blood Culture - Preliminary No growth in 3 days 05/26/18 18:45 Lumbar Puncture Gram Stain - Final 05/26/18 18:45 Lumbar Puncture CSF Culture - Preliminary No growth in 48 hours Imaging: ITS Impressions Head CT 05/26/18 21:54 CONCLUSION: 1. No acute intracranial abnormality. 2. Acute left maxillary sinusitis. . . Physical Exam: PHYSICAL EXAMINATION: GENERAL: Patient is awake and alert and oriented x3. HEENT: The head is atraumatic. Extraocular movements grossly intact. Pupils reactive to light. No icterus. No nystagmus. Nasal septum midline. Oropharynx moist mucosa without lesions. NECK: Supple. No adenopathy. LUNGS: Clear breath sounds. HEART: Regular S1, S2, without murmurs, rubs or gallops. ABDOMEN: Bowel sounds present. Soft, nontender. No hepatosplenomegaly. EXTREMITIES: No clubbing, cyanosis or edema. SKIN: No rash. Skin is warm and moist. NEUROLOGIC: Nonfocal. PSYCHIATRIC: Calm and cooperative. Assessment and Plan - Plan IMPRESSION: 1. Persistent headache and abnormal cerebrospinal fluid indicating lymphocyte predominance. Verbal viral meningitis. He has improved significantly. The CSF culture has no growth. 2. Acute sinusitis noted on CT scan of the head. However, the patient receives oral antibiotics and his problems with headache did not go away. He has no postnasal drip or sinus pain. The cerebrospinal fluid is more indicative of a viral process or possibly aseptic meningitis. No features suggesting acute bacterial meningitis on the cerebrospinal fluid studies. RECOMMENDATIONS: Because he has improved so significantly, I comfortable sending him home today and following up on the HSV PCR because it is a send out test and will not be back until tomorrow or the next day. I do not see the need to keep him in the hospital awaiting that result since he clinically stable. The results of the HSV PCR can be followed and if it is positive he can be called or his primary physician can be called to address it. I will follow that test result. AFB was not performed on the sample because it was inadequate amount. However his presentation and quick response makes unlikely and the CSF was not indicative of TB meningitis. Okay to discharge today from my standpoint. No isolation necessary.
--- NOTE | 2018-05-29 13:27 | P.DS ---
DS: Providers Date of admission: 05/27/18 09:19 Primary care physician: Arnol Martinez DO Consults: 05/26/18 22:00 Consult to Infectious Diseases Routine Consulting Provider: Torrey De Reason for Consultation: R/o Meningitis CONSULT FOR AM Notified:: Service Spoke with:: Jayson Date Notified:: 05/26/18 Time Notified:: 22:13 Ordering Provider: HIMANSHU 05/27/18 07:35 HUB Only Consult Order Routine Consulting Provider: [employer],Insurance Brief History from admission: This is a 38-year-old male with a PMH of HTN and Hyperlipidemia who was referred to the ER by his PCP for evaluation of possible meningitis. Patient reports complaints of severe headache for approx 1wk, pain is circumferential, severe, 10/10, non-radiating, associated w/ photophobia. No nausea or vomiting. Denies neck pain or stiffness. States he had outpatient CT Head, results unknown. On arrival, BP 139/92, HR 97, O2 sat 98% on RA, Afebrile. CBC unremarkable. INR 1.0. Chemistry unremarkable. BS 112. S/p LP in ER, CSF clear, CSF WBC 84, CSF RBC 2, CSF Protein 93, CSF Glucose normal. S/p Rocephin in ER. DS: Diagnosis Discharge Diagnosis (1) Intractable headache: Status: Acute (2) Meningitis: Status: Acute (3) HTN (hypertension): Status: Acute DS: Summary This patient is a 38 y/o male with a hx of HTN, DLD. He was referred to the ER because of a headache x 1 wk with photophobia. There was a concern for possible meningitis. 05/29/18 Aseptic vs viral meningitis Vitals assessed. Afebrile. Patient was evaluated. He is feeling better today. Cxs negative. Crypto, HSV pcr are still pending. I discussed the case with ID who cleared the patient for discharge. HSV pcr will be back in one to two days and will be followed up. No need for antibiotics or antivirals on discharge. Patient's symptoms have improved. He will be discharged home today. Patient was advised to return to the ED if he begins to have fevers or worsening headaches or photophobia. Follow up with pcp in one week. 1. Viral meningitis CT head done, no acute findings. LP done which shows elevated wbc, predominantly lymphocytes, elevated protein Cxs are pending, crypto ag, HSV pending. Will follow up all cxs. ID following Continue Rocephin, continue acyclovir. Will follow up all studies. If viral etiology is confirmed will d/c antibiotics as per ID recs. 2. HTN. BP under control, continue Lisinopril. Patient is ambulatory, no need for pharmacotherapy for dvt prophylaxis. Encouraged ambulation. Time Spent with Patient Total time spent providing and/or coordinating discharge services: Greater than 30 minutes Quality: VTE Deep Vein Thrombosis/Pulmonary Embolism Present on Admission: No Exam Narrative Exam Narrative: Patient is sitting down in a chair Awake and alert and oriented x3 S1S2 CTA b/l Moves all 4 exts, no weakness, sensation intact, no photophobia, no neck pain. No other neurological defiictis. Results Labs on day of discharge: Preliminary micro results at discharge 05/26/18 22:00 Aerobic Blood Culture - Preliminary Blood - Peripheral No growth in 3 days Anaerobic Blood Culture - Preliminary No growth in 3 days 05/26/18 21:50 Aerobic Blood Culture - Preliminary Blood - Peripheral No growth in 3 days Anaerobic Blood Culture - Preliminary No growth in 3 days Impressions ITS Impressions Head CT 05/26/18 21:54 CONCLUSION: 1. No acute intracranial abnormality. 2. Acute left maxillary sinusitis. . . Discharge Plan Discharge Disposition Patient Disposition: Discharge Home Discharge Order Discharge Orders: Discharge Order (Routine); Ordered 05/29/18 Ordered By: Doreen Roach Physicians Team Primary Care Provider: Arnol Martinez Attending Provider: Doreen Roach Other Providers: Torrey De ; [employer],Insurance Rxs /Orders / Referrals /Forms Prescriptions: Continue atorvastatin 10 mg Tablet 10 mg PO DAILY RF: 0 lisinopril 40 mg Tablet 20 mg PO DAILY RF: 0 Referrals: Arnol Martinez DO [Primary Care Provider] - See Instructions Discharge Interventions Interventions: Discharge Planning - Case Management Last Done: 05/29/18 12:19 Status ED Status: Left Department
[2018-05-29 13:42] VITALS: O2SAT 100
[2018-05-29 13:45] VITALS: BP 146/92; PULSE 85; TEMP 98.1
== END 2018-05-29 16:02 | disposition home or self-care (01) | DRG 103 ==
LOC: NEDA 13:39 → NEPD 13:39 → NEPGCP 05-27 00:14 → N07 05-27 13:28
PROVIDERS: ADMIT Hospitalist; ATTEND Hospitalist
DX: R51 Headache; E78.5 Hyperlipidemia, unspecified; I10 Essential (primary) hypertension; A87.9 Viral meningitis, unspecified; J01.00 Acute maxillary sinusitis, unspecified
CPT/HCPCS: 62270; 70450; 80053; 82945; 84155; 84157; 85025; 85610; 85730; 86403; 87015; 87040; 87070; 87205; 87327; 87449; 87529; 89051; 90761; 90775; 96361; 96365; 96375; 99285; G0378; J0133; J0696; J0780; J1200; J2270; J2405; J3370; J7030; J7040